=== PATIENT | male | born 1970 | race Caucasian/White ===

== ENCOUNTER 2016-07-23 08:56 | Inpatient (IN) | payer OTHER ==
[2016-07-23] VITALS (7 sets, daily range): BP systolic 100–128; BP diastolic 57–68; PULSE 67–97; RESP 15–20; TEMP 97.2–98.1; O2SAT 89–100
[~2016-07-23] VITALS: Ht 167.6 cm; Wt 70.0 kg
[2016-07-23] MEDS ORDERED: UNK INHALER (09:17)
[2016-07-23] MEDS ORDERED: DICYCLOMINE HCL 20 MG/2 ML VIAL IM ONE (09:30)
[2016-07-23] MEDS ORDERED: SODIUM CHLORIDE 0.9% FLUSH 5 ML FLUSH IVF PRN (09:30)
--- NOTE | 2016-07-23 09:32 | PD ---
HPI . Abdominal pain Chief Complaint: Abdominal Pain Time Seen by Provider: 09:13 Travel History International Travel<30 days: No Contact w/Intl Traveler<30days: No Traveled to known affect area: No History of Present Illness HPI Patient presents with a 2 to three-day history of worsening abdominal pain. He states that it initially waxed and waned but became persistent last night after supper. He describes a crampy abdominal pain. He states that it feels like he needs to have a bowel movement. He states that he's passed a little bit of gas and a little bit of mucus but not much in the way of bowel movement for the last few days. He denies any associated fevers. He does admit to some nausea but no vomiting. He denies any urinary tract symptoms but states urination causes his abdominal pain to worsen. He took Ex-Lax last night without relief. Pain is exacerbated by eating and relieved by lying on his stomach. He has had previous herniorrhaphy. That was done laparoscopically. [facility] Past Medical History Asthma: Yes Past Surgical History Other Surgery: Yes (HERNIA) Social History Alcohol Use: Yes Tobacco Use: No Substance Use: No Allergies-Medications (Allergen,Severity, Reaction): Coded Allergies: No Known Allergies (Unverified , 07/23/16) Reported Meds & Prescriptions Reported Meds & Active Scripts Active Reported [Unk Inhaler] DIRECTED Review of Systems Except as stated in HPI: all other systems reviewed are Neg General / Constitutional: No: Fever Gastrointestinal: Positive: Nausea, Abdominal Pain, Constipation, Loss of Appetite, No: Vomiting, Diarrhea Genitourinary: No: Urgency, Frequency, Dysuria Physical Exam Narrative GENERAL: I found the patient lying on the stretcher on his right side. He appears to be in pain. SKIN: Warm and dry. HEAD: Atraumatic. Normocephalic. EYES: Pupils equal and round. ENT: No nasal bleeding or discharge. Mucous membranes pink and moist. NECK: Trachea midline. Neck is supple. CARDIOVASCULAR: Regular rate and rhythm. Heart sounds are normal. RESPIRATORY: No accessory muscle use. Lungs are clear with full air movement throughout. GASTROINTESTINAL: Abdomen soft. Mild diffuse tenderness. Nondistended. No guarding or rebound. MUSCULOSKELETAL: No obvious deformities. No edema. NEUROLOGICAL: Awake and alert. No obvious cranial nerve deficits. Motor grossly within normal limits. Normal speech. PSYCHIATRIC: Appropriate mood and affect; insight and judgment normal. Data Data Last Documented VS Vital Signs Date Time Temp Pulse Resp B/P Pulse Ox O2 Delivery O2 Flow Rate FiO2 07/23/16 10:59 98 Nasal Cannula 2 07/23/16 09:16 73 20 128/68 07/23/16 08:58 98.1 Orders Basic Metabolic Panel (Bmp) (07/23/16 09:23) Complete Blood Count With Diff (07/23/16 09:23) Urinalysis - C+S If Indicated (07/23/16 09:23) Abdomen, Flat & Upright (07/23/16 ) Iv Access Insert/Monitor (07/23/16 09:23) Sodium Chloride 0.9% Flush (Ns Flush) (07/23/16 09:30) Dicyclomine Inj (Bentyl Inj) (07/23/16 09:30) Lactic Acid (07/23/16 10:19) Ct Abd/Pel W Iv Contrast(Rout) (07/23/16 10:19) Morphine Inj (Morphine Inj) (07/23/16 10:30) Ondansetron Inj (Zofran Inj) (07/23/16 10:30) Sodium Chlor 0.9% 1000 Ml Inj (Ns 1000 M (07/23/16 10:19) Iohexol 300 Inj (Rad Ct) (Omnipaque 300 (07/23/16 11:26) Labs Laboratory Tests Test 07/23/16 07/23/16 09:32 10:42 White Blood Count 21.4 TH/MM3 Red Blood Count 4.89 MIL/MM3 Hemoglobin 15.4 GM/DL Hematocrit 45.5 % Mean Corpuscular Volume 93.0 FL Mean Corpuscular Hemoglobin 31.5 PG Mean Corpuscular Hemoglobin 33.9 % Concent Red Cell Distribution Width 13.0 % Platelet Count 220 TH/MM3 Mean Platelet Volume 9.0 FL Neutrophils (%) (Auto) 88.9 % Lymphocytes (%) (Auto) 2.3 % Monocytes (%) (Auto) 8.7 % Eosinophils (%) (Auto) 0.0 % Basophils (%) (Auto) 0.1 % Neutrophils # (Auto) 19.1 TH/MM3 Lymphocytes # (Auto) 0.5 TH/MM3 Monocytes # (Auto) 1.9 TH/MM3 Eosinophils # (Auto) 0.0 TH/MM3 Basophils # (Auto) 0.0 TH/MM3 CBC Comment DIFF FINAL Differential Comment Urine Color YELLOW Urine Turbidity CLEAR Urine pH 5.5 Urine Specific [place] 1.026 Urine Protein 30 mg/dL Urine Glucose (UA) 70 mg/dL Urine Ketones 150 mg/dL Urine Occult Blood NEG Urine Nitrite NEG Urine Bilirubin NEG Urine Urobilinogen LESS THAN 2.0 MG/DL Urine Leukocyte Esterase NEG Urine RBC 1 /hpf Urine WBC 3 /hpf Urine Bacteria RARE /hpf Urine Mucus FEW /lpf Microscopic Urinalysis Comment CULT NOT INDICATED Sodium Level 136 MEQ/L Potassium Level 3.6 MEQ/L Chloride Level 103 MEQ/L Carbon Dioxide Level 26.1 MEQ/L Anion Gap 7 MEQ/L Blood Urea Nitrogen 11 MG/DL Creatinine 0.89 MG/DL Estimat Glomerular Filtration 93 ML/MIN Rate Random Glucose 141 MG/DL Calcium Level 8.7 MG/DL Lactic Acid Level 1.3 mmol/L MDM Medical Decision Making Medical Screen Exam Complete: Yes Emergency Medical Condition: Yes Medical Record Reviewed: Yes (he has no medical records in our system.) Differential Diagnosis Differential diagnosis of abdominal pain includes but is not limited to gastritis, pancreatitis, hepatitis, gastroenteritis, gallbladder disease, constipation, urinary retention, UTI, peptic ulcer disease, diverticulitis or appendicitis Narrative Course Patient presents for evaluation and treatment of crampy abdominal pain and constipation. I have ordered a flat and upright of the abdomen to rule out SBO. His CBC does have an elevated white blood count of 21.4. Chemistries are unremarkable. UA is negative for infection. Abdominal x-rays negative. 10:15 AM Repeat abdominal exam shows tenderness mainly in the lower abdomen. It does seem that the majority of the tenderness is in the RLQ. I will do a CT of his abdomen and add a lactic acid and blood cultures. I will also give him some narcotic pain medication. 11:15 AM Lactic acid is normal. CT is pending. 11:[address] report CONCLUSION: Abnormal wall thickening consistent with acute diverticulitis within the sigmoid colon. There is free air abutting the abnormally thickened wall extending along the left lateral aspect of the sigmoid colon and posteriorly. No discrete walled off fluid collection. The adjacent mesenteric fat demonstrates extensive edema. This critical value will be relayed to the referring team. Diagnosis Primary Impression: Abdominal pain Qualified Code: R10.84 - Generalized abdominal pain Additional Impression: Diverticulitis large intestine Qualified Code: K57.20 - Diverticulitis of large intestine with perforation without bleeding Admitting Information Admitting Physician Requests: Admit Patient Instructions: Narcotic given in the ED Condition: Stable Mini Mccoy MD Jul 23, 2016 09:31
[2016-07-23 09:44] LABS: AUTOMATED NEUTROPHIL # 19.1 TH/MM3 (1.8-7.7); BASOPHIL % 0.1 % (0.0-2.0); HEMATOCRIT 45.5 % (39.0-51.0); HEMO FLAGS DIFF FINAL; LYMPH % 2.3 % (9.0-44.0); LYMPHOCYTE # 0.5 TH/MM3 (1.0-4.8); MEAN CORPUSCULAR HEMOGLOBIN 31.5 PG (27.0-34.0); MEAN CORPUSCULAR HGB CONC 33.9 % (32.0-36.0); MONO % 8.7 % (0.0-8.0); NEUT % 88.9 % (16.0-70.0); PLATELET COUNT 220 TH/MM3 (150-450); RED BLOOD COUNT 4.89 MIL/MM3 (4.50-5.90); WHITE BLOOD COUNT 21.4 TH/MM3 (4.0-11.0)
[2016-07-23 09:57] LABS: BACTERIA, URINE RARE /hpf; BICARBONATE 26.1 MEQ/L (21.0-32.0); BLOOD, URINE NEG (NEG); COMMENT (UR) CULT NOT INDICATED; CULTURE IF INDICATED CULT NOT INDICATED; GLUCOSE,URINE 70 mg/dL (NEG); KETONE, URINE 150 mg/dL (NEG); MUCUS URINE FEW /lpf (OCC); NITRITE,URINE NEG (NEG); PH, URINE 5.5 (5.0-8.5); POTASSIUM 3.6 MEQ/L (3.5-5.1); URINE COLOR YELLOW (YELLW/STRAW)
--- NOTE | 2016-07-23 10:09 | RADRPT ---
EXAM DATE/TIME: 07/23/2016 09:42 [facility] COMPARISON: No previous studies available for comparison. INDICATIONS : Abdominal pain. MEDICAL HISTORY : None. SURGICAL HISTORY : Inguinal hernia repair. ENCOUNTER: Initial ACUITY: 2 days PAIN SCORE: 9/10 LOCATION: Right lower quadrant FINDINGS: Supine and upright views of the abdomen were performed. The abdominal bowel gas pattern is normal. No air fluid levels are seen. No abnormal masses, calcifications, or organomegaly is seen. The visu alized lower lungs are clear. No evidence of free intraperitoneal gas. The osseous structures are u nremarkable. CONCLUSION: No acute disease. Tonja Caro MD on July 23, 2016 at 10:07 Board Certified Radiologist. This report was verified electronically.
[2016-07-23] MEDS ORDERED: SODIUM CHLOR 0.9% 1000 ML INJ 1,000 ML IV SCH (10:19)
[2016-07-23] MEDS ORDERED: ONDANSETRON HCL 4 MG/2 ML VIAL IVP ONE (10:30)
[2016-07-23] MEDS ORDERED: MORPHINE SULFATE 4 MG/ML INJ IV PUSH ONE ×2 (10:30→12:15)
[2016-07-23] MEDS ORDERED: IOHEXOL 300 MG/ML 100 ML BTL (for Rad CT) IV ONE (11:26)
--- NOTE | 2016-07-23 11:38 | RADRPT ---
EXAM DATE/TIME: 07/23/2016 11:14 [facility] COMPARISON: No previous studies available for comparison. INDICATIONS : Lower pelvic pain for three days. IV CONTRAST: 87 cc Omnipaque 300 (iohexol) IV ORAL CONTRAST: No oral contrast ingested. RADIATION DOSE: 5.88 CTDIvol (mGy) MEDICAL HISTORY : Non-responsive. asthma SURGICAL HISTORY : hernia surgery ENCOUNTER: Initial ACUITY: 3 days PAIN SCALE: 7/10 LOCATION: Bilateral pelvis Abdomen TECHNIQUE: Volumetric scanning of the abdomen and pelvis was performed. Using automated exposure control and ad justment of the mA and/or kV according to patient size, radiation dose was kept as low as reasonably achievable to obtain optimal diagnostic quality images. FINDINGS: BOWEL/MESENTERY: There is abnormal wall thickening identified in the sigmoid colon with adjacent diverticuli and free air within the mesenteric fat laterally to the left and posteriorly consistent with perforation. No e vidence of discrete walled off fluid.. LOWER LUNGS: The visualized lower lungs are clear. LIVER: Homogeneous density with small well-circumscribed fluid density lesions consistent with cysts within the left medial segment and in a subcapsular location within the right lobe of the liver.. There is no dilation of the biliary tree. No calcified gallstones. SPLEEN: Normal size without lesion. PANCREAS: Within normal limits. KIDNEYS: Normal in size and shape. There is no concerning mass, stone or hydronephrosis. Small well-circumscr ibed right-sided renal cysts. ADRENAL GLANDS: Within normal limits. VASCULAR: There is no aortic aneurysm. ABDOMINAL WALL: Within normal limits. RETROPERITONEUM: There is no lymphadenopathy. BLADDER: No wall thickening or mass. REPRODUCTIVE: Within normal limits. INGUINAL: There is no lymphadenopathy or hernia. MUSCULOSKELETAL: Within normal limits for patient age. CONCLUSION: Abnormal wall thickening consistent with acute diverticulitis within the sigmoid colo n. There is free air abutting the abnormally thickened wall extending along the left lateral aspect o f the sigmoid colon and posteriorly. No discrete walled off fluid collection. The adjacent mesenteric fat demonstrates extensive edema. This critical value will be relayed to the referring team. Tonja Caro MD on July 23, 2016 at 11:31 Board Certified Radiologist. This report was verified electronically.
[2016-07-23] MEDS ORDERED: PIPERACIL-TAZO 4.5 GM PREMIX 100 ML IV ONE (12:00)
--- NOTE | 2016-07-23 12:34 | HHI.HP ---
[facility] Service Family Medicine Primary Care Physician Non-Staff Admission Diagnosis diverticulitis with perforation Diagnoses: International Travel<30 Days: No Contact w/Intl Traveler<30days: No Known Affected Area: No History of Present Illness 45y previously healthy male presents with abdominal pain x3 days. Has diffuse severe crampy abdominal pain and bloating x3 days, worse with eating, improved with lying on his stomach, and refractory to Ex-lax x1 (taken yesterday) and ibuprofen. Abd pain accompanied with fevers/chills x3 days and nausea this morning, but no vomiting. Bowel movements smaller than normal and softer in consistency, but denies diarrhea. Typically stools 2-3x/day and denies history of constipation. Also accompanied with low midline abdominal pain during urination. Medical history is significant for inguinal hernia repair 15+ years ago, one on each side. Diet consists of "lot of meat" (steaks, hamburgers), potatoes, eggs. Denies vegetables or monitoring fiber intake. 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 He has flight home planned for Wednesday and homes to leave by then. (Violeta Alonzo MD R1) Review of Systems Constitutional: COMPLAINS OF: Fever, Chills, DENIES: Dizziness Eyes: DENIES: Blurred vision, Double Vision Ears, nose, mouth, throat: DENIES: Throat pain, Running Nose Respiratory: DENIES: Cough, Shortness of breath Cardiovascular: DENIES: Chest pain, Palpitations Gastrointestinal: COMPLAINS OF: Abdominal pain, Nausea, DENIES: Black stools, Bloody stools, Constipation, Diarrhea Genitourinary: COMPLAINS OF: Dysuria, DENIES: Urinary frequency, Urgency, Hematuria Musculoskeletal: COMPLAINS OF: Back pain (lumbar, positional), DENIES: Joint pain Integumentary: DENIES: Abnormal pigmentation Hematologic/lymphatic: DENIES: Bruising Immunologic/allergic: DENIES: Eczema Neurologic: DENIES: Headache Psychiatric: DENIES: Mood changes, Depression (Violeta Alonzo MD R1) Past Family Social History Past Medical History Asthma Hx inguinal hernia L& R Past Surgical History Inguinal hernia repair L & R ( "in my 20s") [place] teeth removal 04/2016 Reported Medications Fish oil, unknown dose Multivitamin, 1 daily (Violeta Alonzo MD R1) Allergies: Coded Allergies: No Known Allergies (Unverified , 07/23/16) Family History Mother: living, healthy Father: , lung cancer, tobacco use. Diverticulosis. 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 DERM: Warm and dry HEENT: PERRL. EOMI. MMM. NECK: No LAD CV: RRR. No murmurs or gallops. RESP: Lungs CTAB. No wheezing. Breathing well on room air. GI: Abdomen mildly-distended. Diffusely tender to palpation, especially at LLQ and RLQ. Tenses to superficial palpation in all quadrants. No masses appreciated. +BS in all four quadrants. MSK: Moves all four limbs against gravity NEURO: Awake and alert. Motor and sensory function grossly intact PSYCH: Appropriate affect. Good insight. Laboratory Laboratory Tests Test 07/23/16 07/23/16 09:32 10:42 White Blood Count 21.4 Red Blood Count 4.89 Hemoglobin 15.4 Hematocrit 45.5 Mean Corpuscular Volume 93.0 Mean Corpuscular Hemoglobin 31.5 Mean Corpuscular Hemoglobin 33.9 Concent Red Cell Distribution Width 13.0 Platelet Count 220 Mean Platelet Volume 9.0 Neutrophils (%) (Auto) 88.9 Lymphocytes (%) (Auto) 2.3 Monocytes (%) (Auto) 8.7 Eosinophils (%) (Auto) 0.0 Basophils (%) (Auto) 0.1 Neutrophils # (Auto) 19.1 Lymphocytes # (Auto) 0.5 Monocytes # (Auto) 1.9 Eosinophils # (Auto) 0.0 Basophils # (Auto) 0.0 CBC Comment DIFF FINAL Differential Comment Urine Color YELLOW Urine Turbidity CLEAR Urine pH 5.5 Urine Specific [place] 1.026 Urine Protein 30 Urine Glucose (UA) 70 Urine Ketones 150 Urine Occult Blood NEG Urine Nitrite NEG Urine Bilirubin NEG Urine Urobilinogen LESS THAN 2.0 Urine Leukocyte Esterase NEG Urine RBC 1 Urine WBC 3 Urine Bacteria RARE Urine Mucus FEW Microscopic Urinalysis Comment CULT NOT INDICATED Sodium Level 136 Potassium Level 3.6 Chloride Level 103 Carbon Dioxide Level 26.1 Anion Gap 7 Blood Urea Nitrogen 11 Creatinine 0.89 Estimat Glomerular Filtration 93 Rate Random Glucose 141 Calcium Level 8.7 Lactic Acid Level 1.3 (Violeta Alonzo MD R1) Result Diagram: 07/23/16 0932 07/23/16 0932 Imaging Last Impressions Abdomen/Pelvis CT 07/23/16 1019 Signed Impressions: Service Date/Time: June 11:14 - CONCLUSION: Abnormal wall thickening consistent with acute diverticulitis within the sigmoid colon. There is free air abutting the abnormally thickened wall extending along the left lateral aspect of the sigmoid colon and posteriorly. No discrete walled off fluid collection. The adjacent mesenteric fat demonstrates extensive edema. This critical value will be relayed to the referring team. Tonja Caro MD Abdomen X-Ray 07/23/16 0000 Signed Impressions: Service Date/Time: June 09:42 - CONCLUSION: No acute disease. Tonja Caro MD (Violeta Alonzo MD R1) Assessment and Plan Assessment and Plan 45y male, with worsening abdominal pain x3 days hospitalized 07/23/16 for diverticulitis. Code Status Full Discussed Condition With SDW: Dr. Velasco DW: Dr. Ramírez (Violeta Alonzo MD R1) Attending Attestation THIS CASE WAS DISCUSSED WITH THE RESIDENT PHYSICIANS. I HAVE REVIEWED THE RECORD AND AGREE WITH THE ABOVE NOTE AND PLAN OF CARE WAS DISCUSSED. I HAVE AUTHORIZED THE ORDER FOR ADMISSION TO AN IN-PATIENT STATUS. (Kahlil Ramírez MD) Problem List: (1) Diverticulitis large intestine Status: Acute Plan: CT abdomen confirms diverticulitis of sigmoid colon. Microperforation is suggested by free air outside the bowel wall, though there is no evidence of doroteo perforation or abscess. On admission, leukocytosis to 21k. Afebrile. Electrolytes, LFTs, and lactic acid were within normal limits. Will manage as uncomplicated diverticulitis with fluids, antibiotics, and pain control. Plan -Admit to inpatient -MIVF -IV Antibiotics -S/p Zosyn x1 in ED -Continue Zosyn 3.375mg IV q6h (07/23- ) for total of 10-14 days antibiotics ( to finish outpatient as PO) -Pain control [place] 5/325 q4h pain 3-6 [place] 10/325 q4h pain 7-10 Morphine 2mg IV q4h PRN breakthrough -Supportive -Vitals q4h, I&Os, oximetry and oxygen supplementation to maintain saturations 90%+ -Diet: Clear liquid, will advance as tolerated -Case Management Lives in [facility], has flight Wednesday, appreciate assistance with discharge planning Imaging Abdominal Xray (07/23): no acute disease CT abdomen/pelvis (07/23): abnormal wall thickening consistent w acute diverticulitis of sigmoid colon. Free air abutting the abnormally thickened wall. No discrete walled off fluid collection. Extensive edema of adjacent mesenteric fat. (2) Abdominal pain Status: Acute Plan: -pain control per plan for diverticulitis (3) Asthma Status: Chronic Plan: -Albuterol q6h PRN SOB (4) Fluid, Electrolytes, Nutrition, Prophylaxis Status: Chronic Plan: Fluids: MIVF, NS @110mL/hr Electrolytes: wnl, monitor and replete, as needed Nutrition: Clear liquid diet DVT ppx: SCD GI ppx: not indicated at present (Violeta Alonzo MD R1) Physician Certification 2 Midnight Certification Type: Admission for Inpatient Services Order for Inpatient Services The services are ordered in accordance with Medicare regulations or non- Medicare payer requirements, as applicable. In the case of services not specified as inpatient-only, they are appropriately provided as inpatient services in accordance with the 2-midnight benchmark. Estimated LOS (days): 3 days is the estimated time the patient will need to remain in the hospital, assuming treatment plan goals are met and no additional complications. Post-Hospital Plan: Home (Violeta Alonzo MD R1) Problem Qualifiers (1) Diverticulitis large intestine: Qualified Code: K57.20 - Diverticulitis of large intestine with perforation without bleeding (2) Abdominal pain: Qualified Code: R10.84 - Generalized abdominal pain Violeta Alonzo MD R1 Jul 23, 2016 12:34 Kahlil Ramírez MD Jul 24, 2016 11:28
[2016-07-23] MEDS: SODIUM CHLORIDE 0.9% FLUSH 5 ML FLUSH FLUSH SCH ×2 (13:00→21:00)
[2016-07-23] MEDS ORDERED: NALOXONE HCL 0.4 MG/ML AMP IV PRN (13:00)
[2016-07-23] MEDS ORDERED: ACETAMINOPHEN 325 MG TAB PO PRN (13:00)
[2016-07-23] MEDS ORDERED: SODIUM CHLORIDE 0.9% FLUSH 5 ML FLUSH FLUSH PRN (13:00)
[2016-07-23] MEDS ORDERED: ACETAMINOPHEN/HYDROcodone 325 MG/5 MG TAB PO PRN (13:30)
[2016-07-23] MEDS ORDERED: MORPHINE SULFATE 4 MG/ML INJ IV PRN (13:30)
[2016-07-23] MEDS: SODIUM CHLOR 0.9% 1000 ML INJ 1,000 ML IV SCH ×2 (13:42→22:04)
[2016-07-23 14:38] LABS: INDIRECT BILIRUBIN 0.4 MG/DL (0.0-0.8); TOTAL BILIRUBIN ADULT 0.6 MG/DL (0.2-1.0)
[2016-07-23] MEDS ORDERED: ONDANSETRON ODT 4 MG TAB PO PRN (16:45)
[2016-07-23] MEDS: PIPERACIL-TAZO 3.375 GM PREMIX 50 ML IV SCH (18:11)
[2016-07-23] MEDS: ACETAMINOPHEN/HYDROcodone 325 MG/10 MG TAB PO PRN (18:14)
[2016-07-23] MEDS ORDERED: POLYETHYLENE GLYCOL 17 GM PKG PO SCH (21:00)
[2016-07-24] VITALS (7 sets, daily range): BP systolic 100–124; BP diastolic 60–75; PULSE 81–98; RESP 16–18; TEMP 98.4–99.5; O2SAT 93–97
[2016-07-24] MEDS: PIPERACIL-TAZO 3.375 GM PREMIX 50 ML IV SCH ×5 (01:15→23:10)
[2016-07-24] MEDS: ACETAMINOPHEN/HYDROcodone 325 MG/10 MG TAB PO PRN ×4 (07:05→23:12)
[2016-07-24 07:39] LABS: AUTOMATED NEUTROPHIL # 14.4 TH/MM3 (1.8-7.7); BASOPHIL % 0.2 % (0.0-2.0); EOSINOPHIL % 0.1 % (0.0-4.0); HEMATOCRIT 40.4 % (39.0-51.0); HEMO FLAGS DIFF FINAL; LYMPH % 4.4 % (9.0-44.0); LYMPHOCYTE # 0.7 TH/MM3 (1.0-4.8); MEAN CELL VOLUME 92.8 FL (80.0-100.0); MEAN CORPUSCULAR HEMOGLOBIN 31.7 PG (27.0-34.0); MEAN CORPUSCULAR HGB CONC 34.2 % (32.0-36.0); MONO % 8.5 % (0.0-8.0); NEUT % 86.8 % (16.0-70.0); PLATELET COUNT 184 TH/MM3 (150-450); RED BLOOD COUNT 4.36 MIL/MM3 (4.50-5.90); RED CELL DISTRIBUTION WIDTH 13.1 % (11.6-17.2); WHITE BLOOD COUNT 16.6 TH/MM3 (4.0-11.0)
[2016-07-24 07:43] LABS: BICARBONATE 27.1 MEQ/L (21.0-32.0); POTASSIUM 4.2 MEQ/L (3.5-5.1)
--- NOTE | 2016-07-24 08:44 | HHI.FPPN ---
Subjective Remarks FM Attending Note: Patient seen and examined. S: Chart and all resident physician notes reviewed. In summary this is a 45 year old male who was admitted with an admission diagnosis of Diverticulitis With Perforation. This patient gives a 2 day history of worsening lower abdominal pain. Initially the pain was cramping in nature but then became more constant and severe. He notes that he was able to pass a small amount of gas from his rectum with a component of mucus. No fever or chills are noted. He does have some nausea but no vomiting. No urinary symptoms are noted. No previous similar episode is noted. Objective Vitals Vital Signs Date Time Temp Pulse Resp B/P Pulse Ox O2 Delivery O2 Flow Rate FiO2 07/24/16 08:00 98.7 81 16 116/72 93 07/24/16 04:00 99.1 89 17 124/73 96 07/24/16 00:00 Nasal Cannula 2.00 07/24/16 00:00 99.2 82 17 108/67 96 07/23/16 20:00 97.2 73 16 100/58 96 07/23/16 17:00 97.2 69 20 103/59 100 07/23/16 12:18 67 20 119/57 99 Nasal Cannula 2 07/23/16 10:59 98 Nasal Cannula 2 07/23/16 10:58 89 Nasal Cannula 2 07/23/16 09:16 73 20 128/68 98 Room Air 07/23/16 08:58 98.1 97 15 120/59 97 I/O 07/23/16 07/23/16 07/23/16 07/24/16 07/24/16 07/24/16 07:00 15:00 23:00 07:00 15:00 23:00 Intake Total 240 ml 1751 ml Balance 240 ml 1751 ml Intake Oral 240 ml IV Total 1751 ml # Voids 1 Result Diagram: 07/24/16 0654 07/24/16 0654 Other Results Item Value Date Time Lactic Acid Level 1.3 mmol/L 07/23/16 1042 Total Bilirubin 0.6 MG/DL 07/23/16 0932 Direct Bilirubin 0.2 MG/DL 07/23/16 0932 Indirect Bilirubin 0.4 MG/DL 07/23/16 0932 Aspartate Amino Transf (AST/SGOT) 8 U/L L 07/23/16 0932 Alanine Aminotransferase (ALT/SGPT) 25 U/L 07/23/16 0932 Alkaline Phosphatase 76 U/L 07/23/16 0932 Urine Specific [place] 1.026 07/23/16 0932 Urine Protein 30 mg/dL H 07/23/16 0932 Urine Leukocyte Esterase NEG 07/23/16 0932 Urine RBC 1 /hpf 07/23/16 0932 Urine WBC 3 /hpf 07/23/16 0932 Urine Nitrite NEG 07/23/16 0932 Imaging Last 48 hours Impressions Abdomen/Pelvis CT 07/23/16 1019 Signed Impressions: Service Date/Time: June 11:14 - CONCLUSION: Abnormal wall thickening consistent with acute diverticulitis within the sigmoid colon. There is free air abutting the abnormally thickened wall extending along the left lateral aspect of the sigmoid colon and posteriorly. No discrete walled off fluid collection. The adjacent mesenteric fat demonstrates extensive edema. This critical value will be relayed to the referring team. Tonja Caro MD Abdomen X-Ray 07/23/16 0000 Signed Impressions: Service Date/Time: June 09:42 - CONCLUSION: No acute disease. Tonja Caro MD Objective Remarks O. CONSTITUTIONAL/GEN: normally nourished, in NAD. EYES: conjunctiva normal, PERRLA, EOMI. LUNGS: clear A-P, respiratory effort is normal. CARDIOVASCULAR: RR without murmur or gallop. No significant edema. GI/ABD: soft without masses, without organomegaly. BS diminished. Moderate direct tenderness to palpation of the lower abdomen (right and left). No rebound tenderness. : no CVA tenderness NEURO: No focal deficits. SKIN: color normal, no rashes noted. MUSC: back is normal in appearance. Extremities are normal in appearance. PSYCH/MENTAL STATUS: Alert and oriented x 3. A/P Assessment and Plan 45y male, with worsening abdominal pain x3 days hospitalized 07/23/16 for diverticulitis. Problem List: (1) Diverticulitis large intestine Status: Acute Plan: CT abdomen confirms diverticulitis of sigmoid colon. Microperforation is suggested by free air outside the bowel wall, though there is no evidence of doroteo perforation or abscess. On admission, leukocytosis to 21k. Afebrile. Electrolytes, LFTs, and lactic acid were within normal limits. Will manage as uncomplicated diverticulitis with fluids, antibiotics, and pain control. Plan -Admit to inpatient -MIVF -IV Antibiotics -S/p Zosyn x1 in ED -Continue Zosyn 3.375mg IV q6h (07/23- ) for total of 10-14 days antibiotics ( to finish outpatient as PO) -Pain control [place] 5/325 q4h pain 3-6 [place] 10/325 q4h pain 7-10 Morphine 2mg IV q4h PRN breakthrough -Supportive -Vitals q4h, I&Os, oximetry and oxygen supplementation to maintain saturations 90%+ -Diet: Clear liquid, will advance as tolerated -Case Management Lives in [facility], has flight Wednesday, appreciate assistance with discharge planning Imaging Abdominal Xray (07/23): no acute disease CT abdomen/pelvis (07/23): abnormal wall thickening consistent w acute diverticulitis of sigmoid colon. Free air abutting the abnormally thickened wall. No discrete walled off fluid collection. Extensive edema of adjacent mesenteric fat. 07/24/16 Will add metronidazole to antibiotic regimen to ensure adequate anaerobic coverage. Will discuss case with general surgery. Still anticipate effective medical management. (2) Abdominal pain Status: Acute Plan: -pain control per plan for diverticulitis (3) Asthma Status: Chronic Plan: -Albuterol q6h PRN SOB (4) Fluid, Electrolytes, Nutrition, Prophylaxis Status: Chronic Plan: Fluids: MIVF, NS @110mL/hr Electrolytes: wnl, monitor and replete, as needed Nutrition: Clear liquid diet DVT ppx: SCD GI ppx: not indicated at present Problem Qualifiers (1) Diverticulitis large intestine: Qualified Code: K57.20 - Diverticulitis of large intestine with perforation without bleeding (2) Abdominal pain: Qualified Code: R10.84 - Generalized abdominal pain Kahlil Ramírez MD Jul 24, 2016 08:43
[2016-07-24] MEDS: SODIUM CHLORIDE 0.9% FLUSH 5 ML FLUSH FLUSH SCH ×2 (09:00→21:00)
[2016-07-24] MEDS: SODIUM CHLOR 0.9% 1000 ML INJ 1,000 ML IV SCH ×2 (09:05→18:14)
[2016-07-24] MEDS: metroNIDAZOLE 500 MG INJ 100 ML IV SCH ×2 (12:01→18:14)
--- NOTE | 2016-07-24 15:36 | HHI.FPPN ---
Subjective Remarks Overnight, no acute events. AFVSS. Breathing well on 2L NC. Pt reports pain and bloating unchanged from previous. COntinued crampy lower quadrant abdominal pain. Passed small amount diarrhea earlier with mucous consistency. Has been taking minimal pain medications because he doesn't like to take them. Tolerating water, has not yet tried any further clear liquids. Denies f/c, n/v, SOB/CP, leg pain (Violeta Alonzo MD R1) Objective Vitals Vital Signs Date Time Temp Pulse Resp B/P Pulse Ox O2 Delivery O2 Flow Rate FiO2 07/24/16 12:00 99.3 83 16 111/71 95 07/24/16 10:03 18 07/24/16 09:30 97 Nasal Cannula 2.00 07/24/16 08:00 98.7 81 16 116/72 93 07/24/16 04:00 99.1 89 17 124/73 96 07/24/16 00:00 Nasal Cannula 2.00 07/24/16 00:00 99.2 82 17 108/67 96 07/23/16 20:00 97.2 73 16 100/58 96 07/23/16 17:00 97.2 69 20 103/59 100 I/O 07/23/16 07/23/16 07/23/16 07/24/16 07/24/16 07/24/16 07:00 15:00 23:00 07:00 15:00 23:00 Intake Total 240 ml 1751 ml 150 ml Balance 240 ml 1751 ml 150 ml Intake Oral 240 ml 150 ml IV Total 1751 ml # Voids 1 3 # Bowel Movements 2 (Violeta Alonzo MD R1) Result Diagram: 07/24/16 0654 07/24/16 0654 Imaging Last Impressions Abdomen/Pelvis CT 07/23/16 1019 Signed Impressions: Service Date/Time: June 11:14 - CONCLUSION: Abnormal wall thickening consistent with acute diverticulitis within the sigmoid colon. There is free air abutting the abnormally thickened wall extending along the left lateral aspect of the sigmoid colon and posteriorly. No discrete walled off fluid collection. The adjacent mesenteric fat demonstrates extensive edema. This critical value will be relayed to the referring team. Tonja Caro MD Abdomen X-Ray 07/23/16 0000 Signed Impressions: Service Date/Time: June 09:42 - CONCLUSION: No acute disease. Tonja Caro MD Objective Remarks O. CONSTITUTIONAL/GEN: normally nourished, in mild distress secondary to pain , lying on R side. EYES: conjunctiva normal, PERRLA, EOMI. LUNGS: clear A-P, respiratory effort is normal. CARDIOVASCULAR: RR without murmur or gallop. No significant edema. GI/ABD: soft, non-distended Moderate direct tenderness to palpation of the lower abdomen (right and left). No rebound tenderness. : no CVA tenderness NEURO: No focal deficits. SKIN: color normal, no rashes noted. MUSC: back is normal in appearance. Extremities are normal in appearance. PSYCH/MENTAL STATUS: Alert and oriented x 3. (Violeta Alonzo MD R1) Urinary Catheter: No (Violeta Alonzo MD R1) Vascular Central Line Catheter: No (Violeta Alonzo MD R1) A/P Assessment and Plan 45y previously healthy male with worsening abdominal pain x3 days hospitalized for diverticulitis with microperforation Discharge Planning Wed or Wednesday, pending downtrending WBC, pain control, and toleration PO diet. SDW: Dr. Ramírez, Dr. Steve, Dr Velasco, Dr Pompa (Violeta Alonzo MD R1) Attending Attestation Patient seen and examined. Case reviewed and discussed with the resident team. Agree with plan of care as discussed with me and documented in the resident note. (Kahlil Ramírez MD) Problem List: (1) Diverticulitis large intestine Status: Acute Plan: CT abdomen: diverticulitis of sigmoid colon. Microperforation is suggested by free air outside the bowel wall, though no evidence doroteo perforation or abscess. On admission, leukocytosis to 21k. Afebrile. Electrolytes, LFTs, and lactic acid within normal limits. Will manage as uncomplicated diverticulitis with fluids, antibiotics, and pain control. * MIVF * Continue Zosyn 3.375mg IV q6h (07/23- ) for total 10-14 days antibiotics (to finish outpatient as PO) * Start Metronidazole 100mg IV q8h (07/24-) for anaerobic coverage * [place] 5/325 q4h pain 3-6 * [place] 10/325 q4h pain 7-10 * Morphine 2mg IV q4h PRN breakthrough * Supportive: vitals q4h, I&Os, oximetry and oxygen supplementation to maintain saturations 90%+ * Diet: clear liquid, will advance as tolerated * Case Management: Lives in [facility], has flight Wednesday, appreciate assistance with discharge planning Imaging * Abdominal Xray (07/23): no acute disease * CT abdomen/pelvis (07/23): abnormal wall thickening consistent w acute diverticulitis of sigmoid colon. Free air abutting the abnormally thickened wall. No discrete walled off fluid collection. Extensive edema of adjacent mesenteric fat. (2) Abdominal pain Status: Acute Plan: * pain control per plan for diverticulitis (3) Asthma Status: Chronic Plan: * Albuterol q6h PRN SOB (4) Fluid, Electrolytes, Nutrition, Prophylaxis Status: Chronic Plan: * Fluids: MIVF, NS @110mL/hr * Electrolytes: wnl, monitor and replete, as needed * Nutrition: Clear liquid diet * DVT ppx: SCD * GI ppx: not indicated at present * OOB ad altagracia (Violeta Alonzo MD R1) Problem Qualifiers (1) Diverticulitis large intestine: Qualified Code: K57.20 - Diverticulitis of large intestine with perforation without bleeding (2) Abdominal pain: Qualified Code: R10.84 - Generalized abdominal pain (3) Asthma: Qualified Code: J45.20 - Mild intermittent asthma without complication Violeta Alonzo MD R1 Jul 24, 2016 15:36 Kahlil Ramírez MD Jul 26, 2016 13:01 Violeta Alonzo MD R1 Jul 24, 2016 15:36
[2016-07-24] MEDS ORDERED: ALBUTEROL SULFATE 90 MCG/ACT HFA 8 GM INHALER INH PRN (18:30)
[2016-07-25] VITALS (7 sets, daily range): BP systolic 104–136; BP diastolic 64–93; PULSE 70–91; RESP 16–20; TEMP 96.6–99.7; O2SAT 94–98
[2016-07-25] MEDS: metroNIDAZOLE 500 MG INJ 100 ML IV SCH ×3 (01:53→17:32)
[2016-07-25] MEDS: SODIUM CHLOR 0.9% 1000 ML INJ 1,000 ML IV SCH ×3 (01:55→21:17)
[2016-07-25] MEDS: ACETAMINOPHEN/HYDROcodone 325 MG/10 MG TAB PO PRN ×5 (04:11→22:48)
[2016-07-25] MEDS: PIPERACIL-TAZO 3.375 GM PREMIX 50 ML IV SCH ×3 (06:33→18:17)
[2016-07-25] MEDS: SODIUM CHLORIDE 0.9% FLUSH 5 ML FLUSH FLUSH SCH ×2 (07:00→21:16)
[2016-07-25 09:06] LABS: HEMATOCRIT 39.9 % (39.0-51.0); MEAN CELL VOLUME 92.6 FL (80.0-100.0); MEAN CORPUSCULAR HGB CONC 33.5 % (32.0-36.0); PLATELET COUNT 228 TH/MM3 (150-450); RED BLOOD COUNT 4.31 MIL/MM3 (4.50-5.90); RED CELL DISTRIBUTION WIDTH 13.2 % (11.6-17.2); REVIEW FLAG FINAL; WHITE BLOOD COUNT 13.5 TH/MM3 (4.0-11.0)
[2016-07-25 09:33] LABS: ALKALINE PHOSPHATASE 76 U/L (45-117); ALT (GPT) 18 U/L (12-78); ANION GAP 7 MEQ/L (5-15); AST (GOT) 7 U/L (15-37); BICARBONATE 27.6 MEQ/L (21.0-32.0); BLOOD UREA NITROGEN 10 MG/DL (7-18); CHLORIDE 103 MEQ/L (98-107); GLOMERULAR FILTRATION RATE 114 ML/MIN (>89); POTASSIUM 3.8 MEQ/L (3.5-5.1); SODIUM (NA) 138 MEQ/L (136-145); TOTAL BILIRUBIN ADULT 0.6 MG/DL (0.2-1.0)
--- NOTE | 2016-07-25 10:40 | HHI.FPPN ---
Subjective Remarks No acute issues overnight. Vitals are stable, patient remains afebrile. He has noted some improvement in his pain today and is able to sit up in bed. He has not had a significant bowel movement, but continues to pass nonbloody mucus. He denies any chest pain, shortness of breath, fever, chills, nausea or vomiting. His goal is to be discharged tomorrow so that he can make his flight. (Barbara San MD R2) Objective Vitals Vital Signs Date Time Temp Pulse Resp B/P Pulse Ox O2 Delivery O2 Flow Rate FiO2 07/25/16 08:00 96.6 73 20 113/71 98 07/25/16 04:58 16 07/25/16 04:00 99.7 91 17 104/64 94 07/25/16 00:00 98.3 81 17 121/73 97 07/24/16 20:00 99.5 98 18 100/60 95 07/24/16 16:00 98.4 81 16 123/75 95 07/24/16 12:00 99.3 83 16 111/71 95 I/O 07/24/16 07/24/16 07/24/16 07/25/16 07/25/16 07/25/16 07:00 15:00 23:00 07:00 15:00 23:00 Intake Total 1751 ml 150 ml 340 ml 1062 ml Balance 1751 ml 150 ml 340 ml 1062 ml Intake Oral 150 ml 340 ml IV Total 1751 ml 1062 ml # Voids 3 2 # Bowel Movements 2 (Barbara San MD R2) Result Diagram: 07/25/16 0843 07/25/16 0843 Imaging Last Impressions Abdomen/Pelvis CT 07/23/16 1019 Signed Impressions: Service Date/Time: June 11:14 - CONCLUSION: Abnormal wall thickening consistent with acute diverticulitis within the sigmoid colon. There is free air abutting the abnormally thickened wall extending along the left lateral aspect of the sigmoid colon and posteriorly. No discrete walled off fluid collection. The adjacent mesenteric fat demonstrates extensive edema. This critical value will be relayed to the referring team. Tonja Caro MD Abdomen X-Ray 07/23/16 0000 Signed Impressions: Service Date/Time: June 09:42 - CONCLUSION: No acute disease. Tonja Caro MD Objective Remarks O. CONSTITUTIONAL/GEN: normally nourished, male in NAD EYES: conjunctiva normal, PERRLA, EOMI. LUNGS: clear A-P, respiratory effort is normal. CARDIOVASCULAR: RR without murmur or gallop. No edema. GI/ABD: Firm, mildly distended, diffusely tender to palpation throughout. Bowel sounds present and active. No rebound tenderness. No guarding. : no CVA tenderness NEURO: CN II-XII intact. SKIN: color normal, no rashes noted. MUSC: back is normal in appearance. Extremities are normal in appearance. PSYCH/MENTAL STATUS: Alert and oriented x 3. (Barbara San MD R2) A/P Assessment and Plan 45yo previously healthy male with worsening abdominal pain x3 days admitted 07/23 for diverticulitis with microperforation. Discharge Planning Anticipate discharge tomorrow pending continued improvement in symptoms and ability to tolerate PO. dw Dr. Ramírez (Barbara San MD R2) Attending Attestation Case reviewed and discussed with the resident team. Agree with plan of care as discussed with me and documented in the resident note. (Kahlil Ramírez MD) Problem List: (1) Diverticulitis large intestine Status: Acute Plan: Leukocytosis trending down from 16.6-13.5 today Improving clinically Afebrile. Plan: * Patient has been afraid to try PO intake because he has not had a bowel movement. Encouraged patient to try some PO intake today. * MIVF with NS @ 110ml/hr * Zosyn 3.375mg IV q6h (07/23- ) for total 10-14 days antibiotics (to finish outpatient as PO) * Metronidazole 100mg IV q8h (07/24-) for additional anaerobic coverage * [place] 5/325 q4h pain 3-6 * [place] 10/325 q4h pain 7-10 * Morphine 2mg IV q4h PRN breakthrough * Diet: clear liquid, advance as tolerated Imaging * Abdominal Xray (07/23): no acute disease * CT abdomen/pelvis (07/23): abnormal wall thickening consistent w acute diverticulitis of sigmoid colon. Free air abutting the abnormally thickened wall. No discrete walled off fluid collection. Extensive edema of adjacent mesenteric fat. (2) Asthma Status: Chronic Plan: * Albuterol q6h PRN SOB (3) Fluid, Electrolytes, Nutrition, Prophylaxis Status: Chronic Plan: Fluids: MIVF, NS @110mL/hr Electrolytes: wnl, monitor and replete, as needed Nutrition: Clear liquid diet DVT ppx: SCD OOB ad altagracia (Barbara San MD R2) Problem Qualifiers (1) Diverticulitis large intestine: Qualified Code: K57.20 - Diverticulitis of large intestine with perforation without bleeding (2) Asthma: Qualified Code: J45.20 - Mild intermittent asthma without complication Barbara San MD R2 Jul 25, 2016 10:40 Kahlil Ramírez MD Jul 26, 2016 13:11
[2016-07-26] VITALS: BP 130/75; PULSE 90; RESP 16; TEMP 98.7; O2SAT 95
[2016-07-26] MEDS: PIPERACIL-TAZO 3.375 GM PREMIX 50 ML IV SCH ×3 (00:43→11:53)
[2016-07-26] MEDS: metroNIDAZOLE 500 MG INJ 100 ML IV SCH ×2 (00:45→08:13)
[2016-07-26] MEDS: ACETAMINOPHEN/HYDROcodone 325 MG/10 MG TAB PO PRN ×2 (03:00→14:34)
[2016-07-26 04:00] VITALS: BP 127/80; PULSE 86; RESP 18; TEMP 98.4; O2SAT 95
[2016-07-26] MEDS: SODIUM CHLORIDE 0.9% FLUSH 5 ML FLUSH FLUSH SCH (07:37)
[2016-07-26 07:47] LABS: HEMATOCRIT 38.2 % (39.0-51.0); MEAN CELL VOLUME 92.5 FL (80.0-100.0); MEAN CORPUSCULAR HEMOGLOBIN 31.1 PG (27.0-34.0); MEAN CORPUSCULAR HGB CONC 33.6 % (32.0-36.0); PLATELET COUNT 264 TH/MM3 (150-450); RED BLOOD COUNT 4.13 MIL/MM3 (4.50-5.90); REVIEW FLAG FINAL; WHITE BLOOD COUNT 10.9 TH/MM3 (4.0-11.0)
[2016-07-26 07:50] VITALS: BP 130/76; PULSE 67; RESP 20; TEMP 96.7; O2SAT 98
[2016-07-26] MEDS: SODIUM CHLOR 0.9% 1000 ML INJ 1,000 ML IV SCH (08:14)
--- NOTE | 2016-07-26 08:54 | HHI.FPPN ---
Subjective Remarks Overnight, no acute events. AFVSS. Breathing well on room air. Eating- tolerating clears well. Voiding without difficulty. Stool is not yet formed and with mucous, but passing. Ambulating OOB ad altagracia. Plan to discharge today so he can make his flight tomorrow. Reports 07/07 diffuse abdominal pain- "barely there". Denies fevers/chills, nausea/vomiting, shortness of breath/chest pain, leg pain. We discussed low-residue diet x1 week and then increasing fiber in his diet. He reports food allergies and has home GI doctor he will follow up with. (Violeta Alonzo MD R1) Objective Vitals Vital Signs Date Time Temp Pulse Resp B/P Pulse Ox O2 Delivery O2 Flow Rate FiO2 07/26/16 07:50 96.7 67 20 130/76 98 07/26/16 04:00 98.4 86 18 127/80 95 07/26/16 00:00 98.7 90 16 130/75 95 07/25/16 20:00 99.3 70 16 136/93 94 07/25/16 15:56 96.6 73 20 117/73 98 07/25/16 14:33 96 07/25/16 11:50 99.0 84 20 118/76 97 I/O 07/25/16 07/25/16 07/25/16 07/26/16 07/26/16 07/26/16 07:00 15:00 23:00 07:00 15:00 23:00 Intake Total 1062 ml 360 ml 2235 ml Balance 1062 ml 360 ml 2235 ml Intake Oral 360 ml 200 ml IV Total 1062 ml 2035 ml # Voids 5 1 # Bowel Movements 0 (Violeta Alonzo MD R1) Result Diagram: 07/26/16 0725 07/25/16 0843 Imaging Last Impressions Abdomen/Pelvis CT 07/23/16 1019 Signed Impressions: Service Date/Time: June 11:14 - CONCLUSION: Abnormal wall thickening consistent with acute diverticulitis within the sigmoid colon. There is free air abutting the abnormally thickened wall extending along the left lateral aspect of the sigmoid colon and posteriorly. No discrete walled off fluid collection. The adjacent mesenteric fat demonstrates extensive edema. This critical value will be relayed to the referring team. Tonja Caro MD Abdomen X-Ray 07/23/16 0000 Signed Impressions: Service Date/Time: June 09:42 - CONCLUSION: No acute disease. Tonja Caro MD Objective Remarks CONSTITUTIONAL/GEN: normally nourished, male in NAD DERM: Warm and dr EYES: conjunctiva normal, PERRLA, EOMI. LUNGS: clear A-P, respiratory effort is normal. CARDIOVASCULAR: RR without murmur or gallop. No edema. GI/ABD: Soft, non-distended, non-tender to palpation. Tensing of abdominal muscles with palpation diffusely. No rebound. +BS MSK: Back and extremities normal in appearance. No peripheral edema. NEURO: Grossly motor and sensory intact PSYCH: Appropriate affect. Good insight. (Violeta Alonzo MD R1) Urinary Catheter: No (Violeta Alonzo MD R1) Vascular Central Line Catheter: No (Violeta Alonzo MD R1) A/P Assessment and Plan 45yo previously healthy male with worsening abdominal pain x3 days admitted 07/23 for diverticulitis with microperforation. Discharge Planning Today pending continued improvement in symptoms and ability to tolerate PO. SDW: Dr Ramírez (Violeta Alonzo MD R1) Attending Attestation Patient seen and examined. Case reviewed and discussed with the resident team. Agree with plan of care as discussed with me and documented in the resident note. (Kahlil Ramírez MD) Problem List: (1) Diverticulitis large intestine Status: Acute Plan: Improving clinically. Afebrile. Leukocytosis trending down from 16.6- 10.9 today. Plan: * Discontinue MIVF * Zosyn 3.375mg IV q6h (07/23-07/26) for total 10 days * Metronidazole 100mg IV q8h (07/24-07/26) for additional anaerobic coverage * [place] 5/325 q4h pain 3-6 * [place] 10/325 q4h pain 7-10 * Morphine 2mg IV q4h PRN breakthrough- has not been using * Diet: clear liquid, advance as tolerated Discharge * Discharge home with Keflex 500mg q6h PO x7 days * Discharge with Flagyl 500mg q8h PO x7 days * [place] 5/325 q6h PO #20 tabs for severe pain * Encouraged to eat probiotics (yogurt with active cultures) to help with indigestion while on antibiotics * Recommend low-residue diet (low fiber, soft) for one week, then increase fiber in diet- knowing that flatulence is acute side effect that will diminish with time * Follow up with GI in 1 week, recommend colonoscopy in 6 weeks to assess degree of diverticuli Imaging * Abdominal Xray (07/23): no acute disease * CT abdomen/pelvis (07/23): abnormal wall thickening consistent w acute diverticulitis of sigmoid colon. Free air abutting the abnormally thickened wall. No discrete walled off fluid collection. Extensive edema of adjacent mesenteric fat. (2) Asthma Status: Chronic Plan: * Albuterol q6h PRN SOB (3) Fluid, Electrolytes, Nutrition, Prophylaxis Status: Chronic Plan: Fluids: Per PO Electrolytes: wnl, monitor and replete, as needed Nutrition: Regular low-residue diet DVT ppx: SCD GI ppx: not indicated OOB ad altagracia (Violeta Alonzo MD R1) Problem Qualifiers (1) Diverticulitis large intestine: Qualified Code: K57.20 - Diverticulitis of large intestine with perforation without bleeding (2) Asthma: Qualified Code: J45.20 - Mild intermittent asthma without complication Violeta Alonzo MD R1 Jul 26, 2016 08:54 Kahlil Ramírez MD Jul 26, 2016 13:17
[2016-07-26] MEDS ORDERED: CEPH-460 PO (12:19)
[2016-07-26] MEDS ORDERED: METR500T10 PO (12:19)
[2016-07-26] MEDS ORDERED: HYDR-3516 PO (12:19)
--- NOTE | 2016-07-26 12:22 | HHI.DCPOC ---
Discharge Care Plan Diagnosis: (1) Diverticulitis large intestine (2) Abdominal pain Goals to Promote Your Health * To prevent worsening of your condition and complications * To maintain your health at the optimal level Directions to Meet Your Goals Take your medications as prescribed Follow your dietary instruction Follow activity as directed Keep your appointments as scheduled Take your immunizations and boosters as scheduled If your symptoms worsen call your PCP, if no PCP go to Urgent Care Center or Emergency Room Smoking is Dangerous to Your Health. Avoid second hand smoke Call the 24-hour hour crisis hotline for domestic abuse at Violeta Alonzo MD R1 Jul 26, 2016 12:22
--- NOTE | 2016-07-26 15:19 | HHI.DS ---
Discharge Summary Admission Date Jul 23, 2016 at 12:10 Discharge Date: Jul 26, 2016 Admitting Diagnosis diverticulitis with perforation (1) Diverticulitis large intestine Diagnosis: Principal Plan: Improving clinically. Afebrile. Leukocytosis trending down from 16.6- 10.9 today. Plan: * Discontinue MIVF * Zosyn 3.375mg IV q6h (07/23-07/26) for total 10 days * Metronidazole 100mg IV q8h (07/24-07/26) for additional anaerobic coverage * [place] 5/325 q4h pain 3-6 * [place] 10/325 q4h pain 7-10 * Morphine 2mg IV q4h PRN breakthrough- has not been using * Diet: clear liquid, advance as tolerated Discharge * Discharge home with Keflex 500mg q6h PO x7 days * Discharge with Flagyl 500mg q8h PO x7 days * [place] 5/325 q6h PO #20 tabs for severe pain * Encouraged to eat probiotics (yogurt with active cultures) to help with indigestion while on antibiotics * Recommend low-residue diet (low fiber, soft) for one week, then increase fiber in diet- knowing that flatulence is acute side effect that will diminish with time * Follow up with GI in 1 week, recommend colonoscopy in 6 weeks to assess degree of diverticuli Imaging * Abdominal Xray (07/23): no acute disease * CT abdomen/pelvis (07/23): abnormal wall thickening consistent w acute diverticulitis of sigmoid colon. Free air abutting the abnormally thickened wall. No discrete walled off fluid collection. Extensive edema of adjacent mesenteric fat. (2) Asthma Diagnosis: Secondary Plan: * Albuterol q6h PRN SOB [facility] Case management Procedures None Brief History 45y previously healthy male presents with abdominal pain x3 days. Has diffuse severe crampy abdominal pain and bloating x3 days, worse with eating, improved with lying on his stomach, and refractory to Ex-lax x1 (taken yesterday) and ibuprofen. Abd pain accompanied with fevers/chills x3 days and nausea this morning, but no vomiting. Bowel movements smaller than normal and softer in consistency, but denies diarrhea. Typically stools 2-3x/day and denies history of constipation. Also accompanied with low midline abdominal pain during urination. Medical history is significant for inguinal hernia repair 15+ years ago, one on each side. Diet consists of "lot of meat" (steaks, hamburgers), potatoes, eggs. Denies vegetables or monitoring fiber intake. 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 He has flight home planned for Wednesday and homes to leave by then. CBC/BMP: 07/26/16 0725 07/25/16 0843 Significant Findings Laboratory Tests Test 07/24/16 07/25/16 07/26/16 06:54 08:43 07:25 White Blood Count 16.6 TH/MM3 13.5 TH/MM3 (4.0-11.0) (4.0-11.0) Red Blood Count 4.36 MIL/MM3 4.31 MIL/MM3 4.13 MIL/MM3 (4.50-5.90) (4.50-5.90) (4.50-5.90) Neutrophils (%) (Auto) 86.8 % (16.0-70.0) Lymphocytes (%) (Auto) 4.4 % (9.0-44.0) Monocytes (%) (Auto) 8.5 % (0.0-8.0) Neutrophils # (Auto) 14.4 TH/MM3 (1.8-7.7) Lymphocytes # (Auto) 0.7 TH/MM3 (1.0-4.8) Monocytes # (Auto) 1.4 TH/MM3 (0-0.9) Random Glucose 110 MG/DL (74-106) Calcium Level 8.0 MG/DL 8.0 MG/DL (8.5-10.1) (8.5-10.1) Aspartate Amino Transf 7 U/L (15-37) (AST/SGOT) Total Protein 6.0 GM/DL (6.4-8.2) Albumin 2.6 GM/DL (3.4-5.0) Hemoglobin 12.8 GM/DL (13.0-17.0) Hematocrit 38.2 % (39.0-51.0) Imaging Last Impressions Abdomen/Pelvis CT 07/23/16 1019 Signed Impressions: Service Date/Time: June 11:14 - CONCLUSION: Abnormal wall thickening consistent with acute diverticulitis within the sigmoid colon. There is free air abutting the abnormally thickened wall extending along the left lateral aspect of the sigmoid colon and posteriorly. No discrete walled off fluid collection. The adjacent mesenteric fat demonstrates extensive edema. This critical value will be relayed to the referring team. Tonja Caro MD Abdomen X-Ray 07/23/16 0000 Signed Impressions: Service Date/Time: June 09:42 - CONCLUSION: No acute disease. Tonja Caro MD PE at Discharge CONSTITUTIONAL/GEN: normally nourished, male in NAD DERM: Warm and dr EYES: conjunctiva normal, PERRLA, EOMI. LUNGS: clear A-P, respiratory effort is normal. CARDIOVASCULAR: RR without murmur or gallop. No edema. GI/ABD: Soft, non-distended, non-tender to palpation. Tensing of abdominal muscles with palpation diffusely. No rebound. +BS MSK: Back and extremities normal in appearance. No peripheral edema. NEURO: Grossly motor and sensory intact PSYCH: Appropriate affect. Good insight. Hospital Course Previously healthy 45y male presents with abdominal pain x3 days, hospitalized -07/26/16 for diverticulitis with microperforation. CT abdomen/pelvis (07/23) showed abnormal wall thickening consistent w acute diverticulitis of sigmoid colon, with free air abutting the abnormally thickened wall, indicative of microperforation. Responded well for treatment of uncomplicated diverticulitis with fluids, antibiotics, and bowel rest. Received three days of Zosyn and two days Flagyl while inpatient, discharged home with one week of Keflex and Flagyl (10 days total antibiotics) and [place] 5/325 #20 tabs for pain. Pt encouraged to eat low-residue diet x1 week, increase fiber in diet chronically, eat probiotics to avoid GI discomfort while on antibiotics Recommended with follow up with GI in 1 week with recommended colonoscopy in 6 weeks. Pt Condition on Discharge: Stable Discharge Disposition: Discharge Home Discharge Instructions DIET: Follow Instructions for: Low Fiber Diet Activities you can perform: Regular-No Restrictions Other Activity Instructions: Avoid lifting over 20 lbs and activities that will increase intraabdominal pressure (sit ups, sports involving possiblity of abdominal trauma, etc) for x1 week Follow up Referrals: Gastroenterology - 1 Week PCP Follow-up - 1 Week New Medications: Cephalexin (Keflex) 500 Mg Cap 500 MG PO Q6H Infection #28 Ref 0 CAP Metronidazole (Metronidazole) 500 Mg Tab 500 MG PO TID Infection #21 Ref 0 TAB Hydrocodone-Acetaminophen (Hydrocodone-Acetaminophen) 5-325 mg Tab 1 TAB PO Q4H PRN Severe pain #20 TAB Continued Medications: ([Unk Inhaler]) DIRECTED Violeta Alonzo MD R1 Jul 26, 2016 15:19
--- NOTE | 2016-07-26 17:32 | HHI.PR ---
Addendum to Inpatient Note Addendum Reason: Additional Documentation Additional Information I received a page requesting patient's discharge prescriptions be sent to [facility] on [facility], as he left his discharge paperwork at the hospital. He was prescribed Keflex 500mg Q6H, #28, and metronidazole 500mg TID, #21. These prescriptions were called in to [facility] on [facility] using the phone number [phone]. The pharmacist (Mallorie suero ) took the request and patient was called at [phone] to notify him of these actions. He was prescribed Percocet on discharge as well; this cannot be transmitted and patient expressed understanding. Discussed with Aminah Soares MD R1 Jul 26, 2016 17:32
--- NOTE | 2016-07-26 22:24 | HHI.PR ---
Addendum to Inpatient Note Addendum Reason: Additional Documentation Additional Information Called about patient having allergy to cephalosporins. Called patient's pharmacy and cancelled Keflex. Gave verbal order for Bactrim DS one tab BID x 7 days (#14). This plus Flagyl as already prescribed should be adequate coverage for diverticulitis. Ger Hernandez MD R1 Jul 26, 2016 22:24
== END 2016-07-26 17:25 | disposition home or self-care (01) | DRG 392 ==
LOC: NEPA 08:56 → NEDA 12:10 → HOCB 16:59
PROVIDERS: ADMIT Family Medicine; ATTEND Family Medicine
DX: K57.20 Diverticulitis of large intestine with perforation and abscess without bleeding (principal); D72.829 Elevated white blood cell count, unspecified; R60.9 Edema, unspecified; J45.20 Mild intermittent asthma, uncomplicated; K59.00 Constipation, unspecified
CPT/HCPCS: 74020; 74177; 80048; 80053; 80076; 81001; 83605; 85025; 85027; 96372; 96374; 96375; J0500; J2270; J2405; J2543; J7030; Q9967